=== PATIENT | male | born 1970 | race Caucasian/White ===

== ENCOUNTER 2016-09-30 19:31 | Emergency (ER) | payer SELFPAY ==
[~2016-09-30] VITALS: Ht 167.6 cm; Wt 88.0 kg
[~2016-09-30 19:31] MED LIST: ALPR0.5T6 PO; IBUP-1542 PO; ONDA4TAB14 PO
[2016-09-30 19:47] VITALS: Ht 167.6 cm; Wt 88.0 kg
[2016-10-01] MEDS ORDERED: ONDA4TAB8 PO (00:03)
[2016-10-01] MEDS ORDERED: NAPR-260 PO (00:03)
[2016-10-01] MEDS ORDERED: AMOX1TAB10 PO (00:08)
--- NOTE | 2016-10-01 00:12 | ERD ---
ER Documentation Chief Complaint Date/Time DATE: 10/01/16 TIME: 00:10 Chief Complaint sore throat for past 30 days HPI . Patient is a 46-year-old male who presents to the ED with multiple complaints. He complains of left-side throat pain, cheek pain that radiates down to his chest and abdomen. He has had these symptoms for 1 month. He denies fever or chills but states that occasionally he has vomiting associated with the pain. He is able to drink fluids but occasionally is unable to have solid food. He denies neck pain or stiffness. He denies chest pain, sob or difficulty breathing. He has generalized abdominal pain. He has a history of anxiety and states that he has a lot of anxiety and stress in his life. He explained that he recently had a divorce and his ex is not letting him see his daughter. He states that he takes xanax occasionally. he also also tried taking tequila shots, specifically on new years to help with the pain and states it did not help. He states the pain comes and goes. He denies suicidal ideations or thoughts of hurtnig himself or others. ROS All systems reviewed and are negative except as per history of present illness. Medications Home Meds Active Scripts Alprazolam* (Xanax*) 0.5 Mg Tab, 0.5 MG PO Q8H Y for ANXIETY for 5 Days, TAB Prov:MARYLOU KENNY PA-C 10/01/16 Amoxicillin/Potassium Clav (Amox-Clav 875-125 mg Tablet) 875-125 mg Tab, 1 TAB PO BID for 7 Days, #14 TAB Prov:MARYLOU KENNY PA-C 10/01/16 Naproxen* (Naprosyn*) 500 Mg Tablet, 500 MG PO BID for 14 Days, TAB Prov:MARYLOU KENNY PA-C 10/01/16 Ondansetron Hcl* (Zofran*) 4 Mg Tablet, 4 MG PO Q6H for NAUSEA AND/OR VOMITING, #30 TAB Prov:MARYLOU KENNY PA-C 10/01/16 Alprazolam* (Alprazolam*) 0.5 Mg Tablet, 0.5 MG PO Q8H Y for ANXIETY, #10 TAB Prov:NOÉ CARIAS 08/10/16 Ondansetron (Ondansetron Odt) 4 Mg Tab.rapdis, 4 MG PO Q6H Y for NAUSEA AND/OR VOMITING, #10 TAB Prov:NOÉ CARIAS 08/10/16 Ibuprofen* (Motrin*) 600 Mg Tab, 600 MG PO Q6, #30 TAB Prov:NOÉ CARIAS 08/10/16 Allergies Allergies: Coded Allergies: No Known Allergy (Unverified , 08/10/16) PMhx/Soc History of Surgery: No Anesthesia Reaction: No Hx Neurological Disorder: No Hx Respiratory Disorders: No Hx Cardiac Disorders: No Hx Psychiatric Problems: Yes (ANXIETY) Hx Miscellaneous Medical Probl: No Hx Alcohol Use: No Hx Substance Use: Yes (MERIJUANA ) Hx Tobacco Use: No FmHx Family History: No coronary disease, No diabetes, No other Physical Exam Vitals Vital Signs Date Time Temp Pulse Resp B/P Pulse Ox O2 Delivery O2 Flow Rate FiO2 10/01/16 01:50 98.9 78 18 140/88 100 Room Air 09/30/16 19:47 98.8 95 18 156/96 100 Physical Exam GENERAL: Well-developed, well-nourished male. Appears in no acute distress. HEAD: Normocephalic, atraumatic. EYES: Pupils are equally reactive bilaterally. EOMs grossly intact. No conjunctival erythema. ENT: Moist mucous membranes. No uvula deviation. No kissing tonsils. No exudates. no swelling or signs of infection. no drainage. no abscess, no fluctuance NECK: Supple. No lymphadenopathy or thyromegaly. No meningismus. negative brudinski. negative kernig. LUNG: Clear to auscultation bilaterally. No rhonchi, wheezing, rales or coarse breath sounds. HEART: Regular rate and rhythm. No murmurs, rubs or gallops. ABDOMEN: No scars, ecchymosis or rashes noted. Soft, nontender, and nondistended. Positive bowel sounds in all four quadrants. No rebound tenderness , no guarding. (-) McBurneys point tenderness. No CVA tenderness. BACK: No midline tenderness. Extremities: Equal pulses bilaterally. No peripheral clubbing, cyanosis or edema. No unilateral leg swelling. NEUROLOGIC: Alert and oriented. Moving all four extremities. 5/5 strength in all extremities. Normal speech. Steady gait. SKIN: Normal color. Warm and dry. No rashes or lesions. Capillary refill < 2 seconds Procedures/MDM ER COURSE: I kept the patient and/or family informed of laboratory and diagnostic imaging results throughout the emergency room course. MEDICAL DECISION MAKING: This is a 46-year-old male who presents with multiple complaints. Vital signs were reviewed. Patient is afebrile. Patient is not hypoxic. Patient is not toxic or ill-appearing. Temperature 98.8, blood pressure 156/96, pulse 95. Patient's symptoms are all likely related to anxiety and stress. He states that he does have a history of anxiety. Patient does not have suicidal ideations. Low suspicion for peritonsillar abscess, strep pharyngitis, mononucleosis, dental abscess as patient is afebrile, no redness or abscess felt. I have low suspicion for any cardiac emergencies. Low suspicion for ACS , PE, AAA, dissection, DVT. Low suspicion for pneumonia, PE, pneumothorax, ACS , epiglottitis, obstruction, TB, pertussis, sepsis meningitis. I do not think patient needs to be admitted. I do not think any further workup is needed for patient. Patient had a recent brain CT and chest x-ray and EKG all within normal limits. I do not think that any CT is warranted at this time. Risk versus benefits. Patient is talking a lot in the room and is concerned about his anxiety and stress. Patient is also requesting anxiety medications but states that he does not want Ativan today in the ED. Patient is requesting other names of medications. DISCHARGE: At this time, patient is stable for discharge and outpatient management with no new complaints during the ER course. Patient was sent home with Naprosyn, Zofran , Xanax and Augmentin. Advised patient to wait on using the antibiotics. I advised patient to follow-up with primary care regarding his anxiety and that I will not be prescribing him multiple anxiety medications.. Patient will be discharged home with instructions to recheck for new or worsening symptoms such as fever, nausea, weakness, LOC and to follow up with primary care in the next 1 -2 days. Patient was advised to return to the ER for any new or worsening symptoms. Plan was discussed and patient and/or family understands and agrees. Home instructions were given. Departure Diagnosis: Primary Impression: Multiple complaints Additional Impression: Sore throat Condition: Stable Additional Instructions: Call your primary care doctor TOMORROW for an appointment during the next 1-2 days.See the doctor sooner or return here if your condition worsens before your appointment time. MARYLOU KENNY PA-C Oct 01, 2016 00:12
[2016-10-01] MEDS ORDERED: ALPR0.5T PO (00:13)
[2016-10-01 01:50] VITALS: BP 140/88; PULSE 78; RESP 18; TEMP 98.9
== END 2016-10-01 02:48 | disposition home or self-care (01) ==
LOC: FTE 19:31
DX: J02.9 Acute pharyngitis, unspecified (principal); R11.10 Vomiting, unspecified
CPT/HCPCS: 99284

== ENCOUNTER 2017-02-18 10:41 | Emergency (ER) | payer SELFPAY ==
[~2017-02-18] VITALS: Ht 175.3 cm; Wt 107.0 kg
[~2017-02-18 10:41] MED LIST changes: +ALPR0.5T PO; +AMOX1TAB10 PO; +NAPR-260 PO; +ONDA4TAB8 PO
[2017-02-18 10:43] VITALS: Ht 175.3 cm; Wt 107.0 kg
[2017-02-18] MEDS ORDERED: CEPHALEXIN 500 MG CAP PO ONE (12:00)
[2017-02-18] MEDS ORDERED: ACETAMINOPHEN 325 MG TAB PO ONE (12:00)
[2017-02-18] MEDS ORDERED: KETOROLAC 30 MG INJ IM STA (12:00)
[2017-02-18] MEDS ORDERED: TRIMETHOPRIM/SULFAMETHOX (DS) TAB PO ONE (12:00)
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
--- NOTE | 2017-02-18 12:28 | RADRPT ---
PROCEDURE: US Lower extremity Venous. CLINICAL INDICATION: Left leg edema TECHNIQUE: Multiple sonographic images of the left lower extremity deep venous system was obtained utilizing grayscale, color-flow, compressive sonography and doppler imaging with augmentation. The images were reviewed on a PACS workstation. COMPARISON: None. FINDINGS: There is normal compressibility and flow within the left common femoral, femoral, posterior tibial, peroneal and popliteal veins. The great saphenous vein is patent at the knee, calf and ankle levels. RPTAT: AA IMPRESSION: No sonographic evidence for deep venous thrombosis. .Eduardo Calabrese MD, MD Date Time Electronically viewed and signed by .Eduardo Calabrese MD, on 02/18/2017 12:28 .S/
--- NOTE | 2017-02-18 13:29 | RADRPT ---
PROCEDURE: XR Tibia and Fibula. CLINICAL INDICATION: Left tibial pain and swelling TECHNIQUE: 4 views of the left tibia and fibula are available for review. COMPARISON: None available FINDINGS: There is normal mineralization and alignment of the bones of the left tibia and fibula. There is no evidence of acute fracture or dislocation. The suboptimally visualized joint spaces appear grossly within normal limits. There is mild increased soft tissue density in the subcutaneous fat of the lo wer medial leg which may indicate induration or bruising. IMPRESSION: 1. No evidence of fracture or dislocation. 2. Increased soft tissue density in the subcutaneous fat of the left lower leg. Recommend correlat ion with physical exam. RPTAT: KK .Alberto Gamino MD, MD Date Time Electronically viewed and signed by .Alberto Gamino MD, MD on 02/18/2017 13:29 .B/
[2017-02-18] MEDS ORDERED: CEPH-443 PO (13:38)
[2017-02-18] MEDS ORDERED: SULF1TAB31 PO (13:38)
[2017-02-18] MEDS ORDERED: TRAM50TA2 PO (13:38)
== END 2017-02-18 14:12 | disposition home or self-care (01) ==
LOC: FTE 10:41
DX: L03.116 Cellulitis of left lower limb (principal)
CPT/HCPCS: 73590; 93971; 96372; 99285; J1885

== ENCOUNTER 2018-01-21 14:03 | Emergency (ER) | END 2018-01-22 13:41 ==

== ENCOUNTER 2018-10-04 04:01 | Emergency (ER) | payer SELFPAY ==
[~2018-10-04] VITALS: Ht 175.3 cm; Wt 103.9 kg
[~2018-10-04 04:01] MED LIST changes: +CEPH-443 PO; +LORA1TAB PO; -NAPR-260 PO; +NAPR-985 PO; +SULF1TAB31 PO; +TRAM50TA2 PO
[2018-10-04 04:03] VITALS: BP 141/83; PULSE 100; RESP 20; Ht 175.3 cm; Wt 103.9 kg
[2018-10-04] MEDS ORDERED: HYDR-4011 PO (06:16)
[2018-10-04] MEDS ORDERED: PENI500T PO (06:16)
--- NOTE | 2018-10-04 09:14 | ERD ---
ER Documentation Chief Complaint Chief Complaint left upper/lower toothache x 3 months, getting worse HPI Patient is a 48-year-old male with no medical problems who presents with dental pain. The patient said that he has had left-sided upper and lower dental pain and cannot eat for the last few days. He said that he has had "pus" that is come out of his teeth. He did not call the dentist as of yet. He tried ibuprofen for pain. Upon review of old medical records this is the patient's fifth visit for various complaints. ROS All systems reviewed and are negative except as per history of present illness. Medications Home Meds Active Scripts Hydrocodone/Acetaminophen (Arthur 5-325 Tablet) 1 Each Tablet, 1 TAB PO Q6H PRN for PAIN, #7 TAB Prov:IMELDA LOVE MD 10/04/18 Penicillin V Potassium* (Penicillin V K*) 500 Mg Tab, 500 MG PO QID for 7 Days, TAB Prov:IMELDA LOVE MD 10/04/18 Lorazepam* (Lorazepam*) 1 Mg Tablet, 1 MG PO Q8, #3 TAB Prov:IMELDA LOVE MD 01/21/18 Tramadol HCl (Tramadol HCl) 50 Mg Tablet, 50 MG PO Q4 PRN for PAIN, #20 TAB Prov:RADHA GARVEY PA-C 02/18/17 Sulfamethoxazole/Trimethoprim* (Bactrim Ds* Tablet) 1 Each Tablet, 1 TAB PO BID, #14 TAB Prov:RADHA GARVEY PA-C 02/18/17 Cephalexin* (Keflex*) 500 Mg Capsule, 500 MG PO QID for 7 Days, CAP Prov:RADHA GARVEY PA-C 02/18/17 Alprazolam* (Xanax*) 0.5 Mg Tab, 0.5 MG PO Q8H PRN for ANXIETY for 5 Days, TAB Prov:MARYLOU KENNY PA-C 10/01/16 Amoxicillin/Potassium Clav (Amox-Clav 875-125 mg Tablet) 875-125 mg Tab, 1 TAB PO BID for 7 Days, #14 TAB Prov:MARYLOU KENNY PA-C 10/01/16 Naproxen* (Naprosyn*) 500 Mg Tablet, 500 MG PO BID for 14 Days, TAB Prov:MARYLOU KENNY PA-C 10/01/16 Ondansetron Hcl* (Zofran*) 4 Mg Tablet, 4 MG PO Q6H for NAUSEA AND/OR VOMITING, #30 TAB Prov:MANDIVINCENTMARYLOU HERNANDEZ 10/01/16 Alprazolam* (Alprazolam*) 0.5 Mg Tablet, 0.5 MG PO Q8H PRN for ANXIETY, #10 TAB Prov:NOÉ CARIAS C 08/10/16 Ondansetron (Ondansetron Odt) 4 Mg Tab.rapdis, 4 MG PO Q6H PRN for NAUSEA AND/OR VOMITING, #10 TAB Prov:NOÉ CARIAS C 08/10/16 Ibuprofen* (Motrin*) 600 Mg Tab, 600 MG PO Q6, #30 TAB Prov:NOÉ CARIAS C 08/10/16 Allergies Allergies: Coded Allergies: No Known Allergy (Unverified , 08/10/16) PMhx/Soc History of Surgery: Yes (R shoulder surgery, R forearm surgery. ) Anesthesia Reaction: No Hx Neurological Disorder: No Hx Respiratory Disorders: No Hx Cardiac Disorders: No Hx Psychiatric Problems: Yes (ANXIETY, depression ) Hx Miscellaneous Medical Probl: No Hx Alcohol Use: No Hx Substance Use: Yes (MERIJUANA ) Hx Tobacco Use: No Smoking Status: Never smoker FmHx Family History: No diabetes Physical Exam Vitals Vital Signs Date Temp Pulse Resp B/P (MAP) Pulse Ox O2 O2 Flow FiO2 Time Delivery Rate 10/04/18 97.4 100 20 141/83 97 04:03 (102) Physical Exam Const: No acute distress Head: Atraumatic Eyes: Normal Conjunctiva ENT: Poor dentition diffusely Neck: Full range of motion. No meningismus. Resp: Clear to auscultation bilaterally Cardio: Regular rate and rhythm, no murmurs Abd: Soft, non tender, non distended. Normal bowel sounds Skin: No petechiae or rashes Back: No midline or flank tenderness Ext: No cyanosis, or edema Neur: Awake and alert Psych: Normal Mood and Affect Procedures/MDM Patient is a 48-year-old male who presents with likely dental abscess. The patient will be given penicillin VK and a short course of Arthur for pain. The patient can follow-up with the [facility] within 24-48 hours. Departure Diagnosis: Primary Impression: Dental abscess Additional Impression: Toothache Condition: Fair Patient Instructions: Dental Abscess Referrals: [facility] ([facility] walk in clinic) Additional Instructions: SPECIALIST: YOU HAVE A MEDICAL CONDITION WHICH REQUIRES YOU TO SEE A SPECIALIST WITHIN THE NEXT 1-2 DAYS. PLEASE FOLLOW UP WITH YOUR PRIMARY PHYSICIAN FOR REFFERAL.IF YOU DO NOT HAVE A PRIMARY CARE PHYSICIAN AND/OR YOU CAN NOT AFFORD TO SEE A PHYSICIAN THE FOLLOWING RESOURCES HAVE BEEN SUPPLIED TO YOU. IT IS YOUR RESPONSIBILITY TO BE SEEN BY THE SPECIALIST IMELDA LOVE MD Oct 04, 2018 09:14
== END 2018-10-04 06:50 | disposition home or self-care (01) ==
LOC: FTE 04:01
DX: K04.7 Periapical abscess without sinus (principal)
CPT/HCPCS: 99283